=== PATIENT | male | born 1960 | race Caucasian/White ===

== ENCOUNTER 2018-09-28 07:12 | Emergency (ER) | payer OTHER ==
--- NOTE | 2018-09-28 07:47 | UC ---
Dizzy HPI HPI Summary: 58-year-old male with a history of thoracic aneurysm presents after a short episode of lightheadedness/near syncope while at work this morning. He states that he had eaten prior and had taken his blood pressure medicines appropriately this morning. He did not fall or pass out. He does not feel as though this was rotational dizziness or vertigo in any way. He denies any headache, palpitations, chest pains. He does get short of breath from time to time due to his long-standing COPD. At present his symptoms have all resolved. - History Of Current Complaint Stated Complaint: DIZZY Time Seen by Provider: 09/28/18 07:46 Hx Obtained From: Patient - Allergies/Home Medications Allergies/Adverse Reactions: Allergies Allergy/AdvReac Type Severity Reaction Status Date / Time Penicillins Allergy Unknown Verified 09/28/18 07:53 Reaction Details Home Medications: Home Medications Albuterol HFA INHALER* [Ventolin HFA Inhaler*] 1 puff INH Q4H 09/28/18 [History Confirmed 09/28/18] Metoprolol Tartrate TAB* [Lopressor TAB*] 12.5 mg PO BID 09/28/18 [History Confirmed 09/28/18] Omeprazole 40 mg PO DAILY 09/28/18 [History Confirmed 09/28/18] PMH/Surg Hx/FS Hx/Imm Hx - Additional Past Medical History Additional PMH: thoracic aortic dissection Cardiovascular History: Cardiac Disease, Hypertension Respiratory History: COPD - Family History Known Family History: Positive: Hypertension - Social History Occupation: Employed Full-time Lives: With Family Review of Systems All Other Systems Reviewed And Are Negative: Yes Constitutional: Negative: Fever, Chills Skin: Positive: Negative Eyes: Negative: Blurred Vision ENT: Positive: Negative Respiratory: Positive: Shortness Of Breath. Negative: Cough Cardiovascular: Positive: Other - lightheaded. Negative: Palpitations, Chest Pain Gastrointestinal: Positive: Negative. Negative: Vomiting, Nausea Motor: Positive: Negative Neurovascular: Positive: Negative Musculoskeletal: Positive: Negative Neurological: Negative: Headache, Weakness Is Patient Immunocompromised?: Yes Physical Exam Triage Information Reviewed: Yes Appearance: Well-Appearing, No Pain Distress, Well-Nourished Vital Signs Reviewed: Yes Eyes: Positive: Conjunctiva Clear ENT: Positive: Hearing grossly normal, Pharynx normal Neck: Positive: Supple Respiratory: Positive: Lungs clear, No respiratory distress Cardiovascular: Positive: RRR, No Murmur Abdomen Description: Positive: Nontender, Soft Musculoskeletal Exam: Normal Musculoskeletal: Positive: Strength Intact, ROM Intact, No Edema Neurological: Positive: Alert, Fatigued, Other: - normal gait, turns and gerhard without sx Psychological Exam: Normal Skin Exam: Normal Diagnostics - EKG Cardiac Rate: NL - 60 Cardiac Rhythm: Sinus: Normal Ectopy: None ST Segment: Non-Specific - nl axis, intervals. Minor ST dep inferiorly, flip Ts V4-5. EKG Comparison: Other - No prior after 2007. Dizzy Course/Dx - Course Course Of Treatment: Patient is fully asymptomatic now with normal blood pressure. This may be related to his beta yudelka just prior. He had not really changed his position and was not vertiginous. I suggested we had limited ability to work him up here but he is unwilling to go to the emergency department. ECG without arrhythmia but minor ST depressions inferiorly -- Flip Ts laterally. Instead, he will follow up closely with his primary care physician and hydrate well. I was able to get an old ECG from Primary doc -- from August 2018, today's ECG represents no change. - Differential Dx/Diagnosis Differential Diagnosis/HQI/PQRI: Benign Paroxysmal Positional Vertigo, Dysrhythmia, Hypovolemia, Labyrinthitis, Metabolic Abnormality, Vasovagal Reaction Provider Diagnosis: Near syncope Discharge - Sign-Out/Discharge Documenting (check all that apply): Patient Departure All imaging exams completed and their final reports reviewed: No Studies - Discharge Plan Condition: Improved Disposition: HOME Patient Education Materials: Near Syncope (ED) Forms: *Work Release Referrals: Paolo Cespedes MD [Primary Care Provider] - Additional Instructions: Call your doctor for prompt follow-up today. Stay well-hydrated. Off work today. Go to the ER with palpitations, chest pain, persistent lightheadedness, passing out, worse, new symptoms or other concerns as discussed. - Billing Disposition and Condition Condition: IMPROVED Disposition: Home
[2018-09-28 07:52] VITALS: BP 142/98
== END 2018-09-28 09:00 | disposition home or self-care (01) ==
LOC: UCEAST 07:12
DX: R55 Syncope and collapse (principal); R06.02 Shortness of breath; R53.83 Other fatigue; I71.01 Dissection of thoracic aorta; I11.9 Hypertensive heart disease without heart failure; J44.9 Chronic obstructive pulmonary disease, unspecified; Z88.0 Allergy status to penicillin
CPT/HCPCS: 93005; 99201; G0463

== ENCOUNTER 2022-02-24 07:45 | Observation (INO) ==
[2022-02-24 08:15] LABS: ABS Lymphocytes 3.3 10^3/ul (1.0-4.8); ABS Monocytes 1.3 10^3/ul (0-0.8); ABS Neutrophils 9.7 10^3/ul (1.5-7.7); ABS Nucleated RBC 0.1 10^3/ul; Eosinophil % 0.1 %; Hematocrit 49 % (42-52); Hemoglobin 16.4 g/dL (14.0-18.0); Lymphocyte % 23.1 %; Mean Corpuscular HGB Conc 33 g/dL (31-36); Mean Corpuscular Hemoglobin 30 pg (27-31); Mean Corpuscular Volume 89 fL (80-94); Mean Platelet Volume 7.9 fL (7.4-10.4); Nucleated Red Blood Cells % 0.4; Platelet Count 235 10^3/uL (150-450); Red Blood Count 5.53 10^6 /uL (4.18-5.48); Red Cell Distribution Width 15 % (10-15); White Blood Count 14.4 10^3/uL (3.5-10.8)
[2022-02-24 08:23] LABS: INR 1.02 (0.89-1.11)
[2022-02-24] MEDS ORDERED: Iodixanol (CONTRAST) 320 MG/ML 100 ML SDV IV ONE (08:23)
[2022-02-24 08:44] LABS: Albumin 4.2 g/dL (3.2-5.2); Albumin/Globulin Ratio 1.6 (1-3); Calcium 9.4 mg/dL (8.6-10.3); Globulin 2.6 g/dL (2-4); HDL Cholesterol 42.2 mg/dL; Total Bilirubin 0.5 mg/dL (0.2-1.0); Total Protein 6.8 g/dL (6.4-8.9)
[2022-02-24 09:40] LABS: High Sensitivity Troponin 1 Hr 75 pg/mL (<20)
[2022-02-24] MEDS ORDERED: Al Hydrox/Mg Hydrox/Simet LIQ 30 ML UDC PO PRN (09:59)
[2022-02-24] MEDS ORDERED: Albuterol/Ipratropium NEB.SOL (2.5/0.5 MG) 3 ML NEB.SOLN INH PRN (10:09)
[2022-02-24] MEDS ORDERED: Albuterol HFA INHALER 8 gm MDI INH PRN (10:09)
[2022-02-24] MEDS ORDERED: FLUTICAS/UMECLI/VILANT 200-62.5-25 MDI (NF) INH SCH (10:15)
[2022-02-24 14:08] LABS: Urine Appearance Clear; Urine Bilirubin Negative (Negative); Urine Blood Negative (Negative); Urine Color Yellow; Urine Glucose Negative (Negative); Urine Ketones Negative (Negative); Urine Nitrite Negative (Negative); Urine Protein 1+(30 mg/dL) (Negative); Urine Urobilinogen Negative (Negative)
[2022-02-24 14:12] LABS: Urine Bacteria Absent (Absent); Urine Red Blood Cell Trace(0-2/hpf) (Absent); Urine Squamous Epithelial Cell Present (Absent); Urine White Blood Cell Trace(0-5/hpf) (Absent)
[2022-02-24 14:32] LABS: Urine Specific Gravity > 1.060 (1.002-1.030)
[2022-02-24 17:12] LABS: TSH Ultra Thyroid Stim Horm 1.07 mcIU/mL (0.34-5.60)
[2022-02-24] MEDS: Mometasone 220 MCG MDI INH SCH (19:52)
[2022-02-24] MEDS: Enoxaparin 40 MG/0.4 ML SYR SUBCUT SCH (20:21)
[2022-02-25 06:45] LABS: ABS Eosinophils 0.2 10^3/ul (0-0.6); ABS Monocytes 1.1 10^3/ul (0-0.8); ABS Neutrophils 6.7 10^3/ul (1.5-7.7); Eosinophil % 1.4 %; Hematocrit 47 % (42-52); Hemoglobin 15.6 g/dL (14.0-18.0); Lymphocyte % 33.6 %; Mean Corpuscular HGB Conc 33 g/dL (31-36); Mean Corpuscular Hemoglobin 30 pg (27-31); Mean Corpuscular Volume 90 fL (80-94); Mean Platelet Volume 8.2 fL (7.4-10.4); Nucleated Red Blood Cells % 0.1; Platelet Count 201 10^3/uL (150-450); Red Blood Count 5.25 10^6 /uL (4.18-5.48); Red Cell Distribution Width 15 % (10-15)
[2022-02-25] MEDS: Tiotropium Brom/Olodaterol MDI INH SCH (08:51)
[2022-02-25] MEDS: Mometasone 220 MCG MDI INH SCH ×2 (08:51→19:27)
[2022-02-25] MEDS: Nicotine PATCH 14 MG/24 HR PATCH TRANSDERM SCH (09:05)
[2022-02-25] MEDS: Enoxaparin 40 MG/0.4 ML SYR SUBCUT SCH (20:35)
[2022-02-26] MEDS: Tiotropium Brom/Olodaterol MDI INH SCH (07:15)
[2022-02-26] MEDS: Mometasone 220 MCG MDI INH SCH ×2 (07:18→18:58)
[2022-02-26] MEDS ORDERED: Perflutren Lipid Microsphere 3 ML VIAL ONE (07:54)
[2022-02-26] MEDS: Nicotine PATCH 14 MG/24 HR PATCH TRANSDERM SCH (10:31)
[2022-02-26] MEDS ORDERED: Flumazenil 0.5 mg/5 ml 0.1 MG/ML 5 ml VIAL ONE (14:32)
[2022-02-26] MEDS ORDERED: Naloxone 0.4 mg VIAL 0.4 mg/ml 1 ml VIAL ONE (14:32)
[2022-02-26] MEDS ORDERED: fentaNYL 100 mcg/2 ml 50 MCG/ML VIAL ONE (14:32)
[2022-02-26] MEDS ORDERED: Midazolam 5 mg/5 ml VIAL 1 mg/ml 5 ml VIAL (5 mg) ONE (14:32)
[2022-02-26 15:17] VITALS: BP 127/83
== END 2022-02-26 19:55 | disposition home or self-care (01) ==
LOC: ED 07:45 → EDHOLD 07:45 → MEDTELE 14:06
PROVIDERS: ADMIT Pediatrics; ATTEND Pediatrics

== ENCOUNTER 2024-06-13 19:22 | Inpatient (IN) ==
[2024-06-13] MEDS ORDERED: Albuterol/Ipratropium NEB.SOL (2.5/0.5 MG) 3 ML NEB.SOLN ONE (19:26)
[2024-06-13 19:36] LABS: ABS Lymphocytes 1.1 10^3/uL (1.0-4.8); ABS Monocytes 0.7 10^3/uL (0.0-1.1); ABS Neutrophils 11.4 10^3/uL (1.5-7.6); Eosinophil % 0.1 %; Hematocrit 52.4 % (38-53); Hemoglobin 17.6 g/dL (13.2-16.3); Lymphocyte % 8.4 %; Mean Corpuscular Hemoglobin 31.4 pg (27-33); Mean Corpuscular Hgb Conc 33.6 g/dL (31-36); Mean Corpuscular Volume 93.3 fL (80-97); Mean Platelet Volume 8.3 fL (7.5-11.2); Platelet Count 200 10^3/uL (150-450); Red Blood Count 5.62 10^6/uL (4.06-5.63); Red Cell Distribution Width 14.6 % (12-17); White Blood Count 13.3 10^3/uL (3.6-10.2)
[2024-06-13 19:43] LABS: INR 0.96 (0.85-1.14)
[2024-06-13 19:51] LABS: ALT 43 U/L (7-52); Albumin 4.9 g/dL (3.5-5.7); Albumin/Globulin Ratio 1.4 (1-3); Alkaline Phosphatase 104 U/L (35-149); Anion Gap 3 mmol/L (2-16); Blood Urea Nitrogen 19 mg/dL (6-24); CO2 Carbon Dioxide 35 mmol/L (22-32); Calcium 9.8 mg/dL (8.6-10.3); Chloride 98 mmol/L (101-111); Creatinine, Serum 1.31 mg/dL (0.67-1.17); Globulin 3.4 g/dL (2-4); Glucose 174 mg/dL (70-100); Sodium 136 mmol/L (135-145); Total Bilirubin 0.4 mg/dL (0.2-1.0); Total Protein 8.3 g/dL (6.4-8.9)
[2024-06-13 19:56] LABS: High Sens Troponin Baseline 17 pg/mL (<20)
[2024-06-13] MEDS: Magnesium Sulfate 2 gm BAG 2 GM/50 ML BAG IVPB ONE (19:58)
[2024-06-13] MEDS: Albuterol/Ipratropium NEB.SOL (2.5/0.5 MG) 3 ML NEB.SOLN INH STA (20:21)
[2024-06-13] MEDS: Lactated Ringers 1000 ml BAG 1,000 ML IV ONE (20:54)
[2024-06-13] MEDS ORDERED: Ondansetron 4 mg VIAL 2 MG/ML 2 ml VIAL IV PRN (21:24)
[2024-06-13] MEDS: Enoxaparin 40 MG/0.4 ML SYR SUBCUT SCH (22:24)
[2024-06-13] MEDS: DOXYcycline 100 MG in NS 0.9% 250 ml 250 ML IVPB SCH (22:44)
[2024-06-13] MEDS: Nicotine PATCH 7 MG/24 HR PATCH TRANSDERM SCH (22:48)
[2024-06-14 05:55] LABS: ABS Basophils 0.1 10^3/uL (0.0-0.1); ABS Lymphocytes 1.2 10^3/uL (1.0-4.8); ABS Monocytes 0.5 10^3/uL (0.0-1.1); ABS Neutrophils 9.8 10^3/uL (1.5-7.6); ABS Nucleated RBC 0.01 10^3/ul; Hematocrit 42.9 % (38-53); Hemoglobin 14.6 g/dL (13.2-16.3); Lymphocyte % 10.3 %; Mean Corpuscular Hemoglobin 31.5 pg (27-33); Mean Corpuscular Hgb Conc 34.1 g/dL (31-36); Mean Corpuscular Volume 92.4 fL (80-97); Mean Platelet Volume 8.4 fL (7.5-11.2); Platelet Count 156 10^3/uL (150-450); Red Blood Count 4.64 10^6/uL (4.06-5.63); Red Cell Distribution Width 14.2 % (12-17); White Blood Count 11.6 10^3/uL (3.6-10.2)
[2024-06-14 06:33] LABS: Calcium 8.8 mg/dL (8.6-10.3); Creatinine, Serum 0.94 mg/dL (0.67-1.17); Magnesium 2.3 mg/dL (1.9-2.7); Potassium 4.8 mmol/L (3.5-5.0); eGFR CKD-EPI 89.4 (>60)
[2024-06-14] MEDS: Albuterol/Ipratropium NEB.SOL (2.5/0.5 MG) 3 ML NEB.SOLN INH SCH (06:57)
[2024-06-14] MEDS: methylPREDNISolone SOD SUCC 40 mg/ml 1 ml VIAL IV SCH (09:06)
[2024-06-14] MEDS: FLUTICAS/UMECLI/VILANT 200-62.5-25 MDI (NF) INH SCH (10:43)
[2024-06-15] MEDS: Albuterol/Ipratropium NEB.SOL (2.5/0.5 MG) 3 ML NEB.SOLN INH SCH (13:53)
[2024-06-15] MEDS: methylPREDNISolone SOD SUCC 40 mg/ml 1 ml VIAL IV SCH (17:18)
[2024-06-16 06:17] LABS: ABS Monocytes 0.5 10^3/uL (0.0-1.1); ABS Neutrophils 12.7 10^3/uL (1.5-7.6); ABS Nucleated RBC 0.01 10^3/ul; Hematocrit 43.6 % (38-53); Hemoglobin 14.8 g/dL (13.2-16.3); Lymphocyte % 7.1 %; Mean Corpuscular Hemoglobin 31.3 pg (27-33); Mean Corpuscular Volume 91.9 fL (80-97); Mean Platelet Volume 8.6 fL (7.5-11.2); Nucleated Red Blood Cells % 0.1 %/100WBC (0.0-0.8); Platelet Count 174 10^3/uL (150-450); Red Blood Count 4.74 10^6/uL (4.06-5.63); Red Cell Distribution Width 13.9 % (12-17); White Blood Count 14.3 10^3/uL (3.6-10.2)
[2024-06-16 06:42] LABS: Calcium 9.1 mg/dL (8.6-10.3); Creatinine, Serum 1.14 mg/dL (0.67-1.17); Potassium 4.7 mmol/L (3.5-5.0); eGFR CKD-EPI 70.9 (>60)
[2024-06-17] MEDS: Albuterol/Ipratropium NEB.SOL (2.5/0.5 MG) 3 ML NEB.SOLN INH SCH (08:36)
[2024-06-17] MEDS: Albuterol/Ipratropium NEB.SOL (2.5/0.5 MG) 3 ML NEB.SOLN INH PRN (15:00)
[2024-06-18 08:23] LABS: ABS Lymphocytes 1.2 10^3/uL (1.0-4.8); ABS Monocytes 0.8 10^3/uL (0.0-1.1); ABS Neutrophils 12.8 10^3/uL (1.5-7.6); ABS Nucleated RBC 0.01 10^3/ul; Hemoglobin 15.3 g/dL (13.2-16.3); Lymphocyte % 8.2 %; Mean Corpuscular Hemoglobin 31.2 pg (27-33); Mean Corpuscular Hgb Conc 34.1 g/dL (31-36); Mean Corpuscular Volume 91.6 fL (80-97); Mean Platelet Volume 8.8 fL (7.5-11.2); Nucleated Red Blood Cells % 0.1 %/100WBC (0.0-0.8); Platelet Count 186 10^3/uL (150-450); Red Blood Count 4.91 10^6/uL (4.06-5.63); Red Cell Distribution Width 13.9 % (12-17); White Blood Count 14.8 10^3/uL (3.6-10.2)
[2024-06-18 09:09] LABS: Calcium 8.9 mg/dL (8.6-10.3); Creatinine, Serum 1.09 mg/dL (0.67-1.17); Potassium 4.6 mmol/L (3.5-5.0); eGFR CKD-EPI 74.9 (>60)
[2024-06-18 13:53] VITALS: BP 117/77
== END 2024-06-18 15:15 | disposition home or self-care (01) | DRG 190 ==
LOC: ED 19:22 → EDHOLD 21:25 → SUATTDRO 21:25 → MEDTELE 06-14 08:19
PROVIDERS: ADMIT Student in an Organized Health Care Education/Training Program; ATTEND Internal Medicine